=== PATIENT | female | born 1985 | race Caucasian/White ===

== ENCOUNTER 2022-05-12 16:10 | Emergency (ER) | payer OTHER ==
[~2022-05-12] VITALS: Ht 165.1 cm; Wt 90.7 kg
[2022-05-12 16:19] VITALS: BP 133/70
--- NOTE | 2022-05-12 16:25 | NUR ---
Patient ambulated to bed 8.
--- NOTE | 2022-05-12 16:34 | NUR ---
PA Huitron evaluating patient at bedside.
--- NOTE | 2022-05-12 17:06 | NUR ---
Lab at bedside.
--- NOTE | 2022-05-12 17:12 | NUR ---
Ultrasound at bedside.
[2022-05-12 17:16] LABS: BASOPHILS # (AUTO) 0.1 K/uL (0.00-0.22); BASOPHILS % (AUTO) 0.6 % (0.0-2.0); EOSINOPHILS # (AUTO) 0.2 K/uL (0-0.4); EOSINOPHILS % (AUTO) 1.9 % (0.0-4.0); HEMATOCRIT 37.6 % (36-48); HEMOGLOBIN 13.2 g/dL (12.0-16.0); LYMPHOCYTES # (AUTO) 3.8 K/uL (2.5-16.5); LYMPHOCYTES % (AUTO) 39.7 % (20.5-51.1); MEAN CORPUSCULAR HEMOGLOBIN 29 pg (27-31); MEAN CORPUSCULAR HGB CONC 35 g/dL (33-37); MEAN CORPUSCULAR VOLUME 83.4 fL (80-94); MONOCYTES # (AUTO) 0.7 K/uL (0.8-1.0); MONOCYTES % (AUTO) 7.1 % (1.7-9.3); NEUTROPHILS # (AUTO) 4.9 K/uL (1.8-7.7); NEUTROPHILS % (AUTO) 50.7 % (42.2-75.2); PLATELET COUNT (AUTO) 215 K/uL (140-450); RED BLOOD CELL COUNT(AUTO) 4.52 MIL/uL (4.20-5.40); RED CELL DISTRIBUTION WIDTH 13.3 % (11.6-13.7); WHITE BLOOD COUNT (AUTO) 9.6 K/uL (4.8-10.8)
[2022-05-12 17:29] LABS: BILIRUBIN,URINE NEGATIVE (NEGATIVE); BLOOD, URINE 2+ (NEGATIVE); LEUKOCYTE ESTERASE ,URINE TRACE (NEGATIVE); NITRITE, URINE NEGATIVE (NEGATIVE); PH,URINE 6.5 (5.0-9.0); UGLUCOSE NEGATIVE (NEGATIVE)
[2022-05-12 17:31] LABS: APPEARANCE,URINE HAZY (CLEAR); COLOR,URINE YELLOW (YELLOW)
[2022-05-12 17:49] LABS: RBC,URINE 0-5 /HPF (0-5)
[2022-05-12 19:00] VITALS: BP 119/65
[2022-05-12] MEDS ORDERED: NITR100C7 PO (19:02)
[2022-05-12] MEDS ORDERED: IBUP-2213 PO (19:02)
--- NOTE | 2022-05-12 19:19 | NUR ---
Report given to SANTIAGO Slade for transfer of care.
--- NOTE | 2022-05-12 19:23 | NUR ---
Patient discharged with v/s stable. Written and verbal after care instructions given and explained. Patient verbalized understanding. Ambulatory with steady gait. All questions addressed prior to discharge. Advised to follow up with PMD.
== END 2022-05-12 19:23 | disposition home or self-care (01) ==
LOC: MED 16:10
DX: N93.8 Other specified abnormal uterine and vaginal bleeding (principal)
CPT/HCPCS: 36415; 76830; 81001; 81025; 85025; 87086; 99284; Q0092